=== PATIENT | male | born 1980 | race Caucasian/White ===

== ENCOUNTER 2024-04-21 14:06 | Inpatient (IN) | payer OTHER ==
[2024-04-21 14:53] VITALS: BMI 20.9
[2024-04-21] MEDS ORDERED: IBUPROFEN 400 MG TABLET (FP) PO PRN (15:38)
[2024-04-21] MEDS ORDERED: ACETAMINOPHEN 325 MG TABLET (FP) PO PRN (15:38)
[2024-04-21] MEDS ORDERED: POLYETHYLENE GLYCOL (HEALTHYLAX) 3350 17 GM PACKET PO PRN (15:38)
[2024-04-21] MEDS ORDERED: LOPERAMIDE HCL 2 MG CAPSULE PO PRN (15:38)
[2024-04-21] MEDS ORDERED: MAG HYDROX/AL HYDROX/SIMETH 30 ML UNIT-DOSE CUP PO PRN (15:38)
[2024-04-21] MEDS ORDERED: NALOXONE (NARCAN) HCL 4 MG/0.1 ML SPRAY NS PRN (15:38)
[2024-04-21] MEDS ORDERED: METHOCARBAMOL 500 MG TABLET PO PRN (15:38)
[2024-04-21] MEDS ORDERED: BENZONATATE 200 MG CAPSULE PO PRN (15:38)
[2024-04-21] MEDS ORDERED: hydrOXYzine PAMOATE 25 MG CAPSULE (FP) PO PRN (15:38)
[2024-04-21] MEDS ORDERED: BISMUTH SUBSALICYLATE 524 MG/30 ML PO PRN (15:38)
[2024-04-21] MEDS ORDERED: MAGNESIUM HYDROX 2400MG/30ML ORAL SUSPENSION 30 ML CUP PO PRN (15:38)
[2024-04-21] MEDS ORDERED: ONDANSETRON *ODT* 4 MG TABLET SL PRN (15:38)
[2024-04-21] MEDS ORDERED: DICYCLOMINE HCL 10 MG CAPSULE PO PRN (15:38)
[2024-04-21] MEDS ORDERED: NICOTINE POLACRILEX 2 MG GUM BUC PRN (15:38)
[2024-04-21] MEDS ORDERED: BENZOCAINE/MENTHOL (CHLORASEPTIC ) LOZENGE MM PRN (15:38)
[2024-04-21] MEDS ORDERED: IBUPROFEN 600 MG TABLET (FP) PO PRN (15:38)
[2024-04-21] MEDS ORDERED: guaiFENesin 600 MG TABLET.ER (FP) PO PRN (15:38)
[2024-04-21] MEDS ORDERED: NALOXONE HCL 0.4 MG/ML VIAL IM PRN (15:38)
[2024-04-21] MEDS ORDERED: cloNIDine HCL 0.1 MG TABLET PO PRN (15:42)
[2024-04-21] MEDS ORDERED: methaDONE HCL 10 MG TABLET (FOR DETOX USE ONLY) ONE (17:35)
[2024-04-21] MEDS: methaDONE HCL 10 MG TABLET (FOR DETOX USE ONLY) PO ONE (17:48)
[2024-04-21] MEDS: MELATONIN 5 MG TABLETS PO SCH (21:22)
[2024-04-21] MEDS: THIAMINE 100 MG TABLET PO SCH (21:22)
[2024-04-22 08:51] VITALS: BP 150/90; PULSE 68; RESP 18; TEMP 97.8
[2024-04-22 09:00] LABS: CHLORIDE 107 mmol/L (98-107); POTASSIUM 4.1 mmol/L (3.5-5.1); SODIUM 140 mmol/L (136-145)
[2024-04-22 09:05] LABS: HEMATOCRIT 30.7 % (35.4-49); HEMOGLOBIN 9.9 GM/dL (11.7-16.9); MCH 28.1 pg (25.7-33.7); MCHC 32.3 g/dl (32.0-35.9); MEAN CELL VOLUME 86.9 fl (80-96); MEAN PLT VOLUME 8.8 fl (7.5-11.1); PLATELET COUNT 69 10^3/uL (134-434); RBC 3.54 M/mm3 (4.00-5.60); RDW 14.6 % (11.9-15.9); WHITE BLOOD COUNT 2.4 K/mm3 (4.0-10.0)
[2024-04-22 09:09] LABS: CALCIUM 8.4 mg/dL (8.5-10.1)
[2024-04-22 09:10] LABS: ANION GAP 4 mmol/L (4-13); CO2 29 mmol/L (21-32); GLUCOSE,RANDOM 90 mg/dL (74-106)
[2024-04-22 09:11] LABS: ALBUMIN 2.6 g/dl (3.4-5.0); BLOOD UREA NITROGEN 15.3 mg/dL (7-18)
[2024-04-22 09:12] LABS: BILIRUBIN,TOTAL 0.3 mg/dL (0.2-1); TOT PROT 7.9 g/dl (6.4-8.2)
[2024-04-22 09:13] LABS: ALK PHOS 101 U/L (45-117); SGOT/AST 45 U/L (15-37)
[2024-04-22 09:19] LABS: CREATININE 0.8 mg/dL (0.55-1.3)
[2024-04-22 09:20] LABS: SGPT/ALT 31 U/L (13-61)
[2024-04-22] MEDS ORDERED: NICOTINE 21 MG/24 HOURS TOPICAL PATCH TD SCH (10:00)
[2024-04-22] MEDS ORDERED: PRENATAL VITAMINS W/ FOLIC ACID TABLET (FP) PO SCH (10:00)
[2024-04-23] MEDS ORDERED: methaDONE HCL 10 MG TABLET (FOR DETOX USE ONLY) PO ONE (10:00)
[2024-04-25] MEDS ORDERED: methaDONE HCL 10 MG TABLET (FOR DETOX USE ONLY) PO ONE (10:00)
== END 2024-04-22 08:36 | disposition left against medical advice (07) | DRG 770 ==
LOC: YASAS 14:06 → Y3N 17:08
PROVIDERS: ADMIT Allergy & Immunology; ATTEND Surgery
PROC: HZ2ZZZZ Detoxification Services for Substance Abuse Treatment (ICD-10-PCS; principal; 2024-04-21)
DX: F11.23 Opioid dependence with withdrawal (principal); F12.20 Cannabis dependence, uncomplicated; F17.210 Nicotine dependence, cigarettes, uncomplicated; Z21 Asymptomatic human immunodeficiency virus [HIV] infection status; Z56.0 Unemployment, unspecified; Z59.00 Homelessness unspecified
CPT/HCPCS: 36415; 80053; 80305; 80307; 85027; 86780; 93005; 93010